=== PATIENT | male | born 1960 | race Caucasian/White ===

== ENCOUNTER → 2016-12-04 | Day surgery (SDC) | payer OTHER ==
[~2016-12-04] MED LIST: ACETAMINOPHEN/HYDROcodone 325 MG/7.5 MG TAB ONE; BUPIVACAINE/EPINEPHRINE 0.25% 50 ML VIAL ONE; IBUP800T23 PO; KETOROLAC TROMETHAMINE 30 MG/ML (IVP) VIAL IV PUSH ONE; LACTATED RINGER'S 1000 ML INJ 1,000 ML ONE; MIDAZOLAM HCL 2 MG/2 ML VIAL ONE; ONDANSETRON HCL 4 MG/2 ML VIAL IV PUSH ONE; PROPOFOL 200 MG/20 ML AMP IV ONE; ROBA750T3 PO; TRAM50 PO; ceFAZolin INJ 1,000 MG VIAL ONE
--- NOTE | 2016-12-04 16:13 | TN ---
cc: MEGHAN LOYD MD DATE OF SURGERY: 12/04/2016. PREOPERATIVE DIAGNOSIS: Right knee torn medial meniscus. POSTOPERATIVE DIAGNOSIS: Right knee torn medial meniscus. OPERATIVE PROCEDURE PERFORMED: Right knee arthroscopy with partial medial meniscectomy. SURGEON: Meghan Loyd MD. DESCRIPTION OF THE PROCEDURE IN DETAIL: Informed consent was obtained. The patient was taken to the operating room and placed in the supine position on the operating table. He was administered a general anesthesia by the anesthesiologist. At that time, he was given a gram of Ancef. The right thigh had a tourniquet. A side post was brought to the operating table. The leg was prepped with Betadine soap followed by Betadine paint and draping commenced with sterile down sheets, sterile towel about the tourniquet, a sterile U-drape. A stockinette was applied over the foot and calf and this was wrapped with a Coban. An extremity drape was applied. The table was elevated to maximum height. The leg was elevated. A time out was held and confirmed. At that time, the leg was allowed to flex over the side of the operating table. An 18 gauge spinal needle was placed in the region of the lateral infrapatellar portal. This region was infiltrated with 4 mL of 0.25% Marcaine with epinephrine. Infiltration was also performed in the medial infrapatellar portal and transpatellar tendon portal regions. A small incision was made with an 11-blade in the region of the transpatellar tendon portal. An inflow cannula was placed. A second incision was placed in the region of the lateral infrapatellar portal. The arthroscopic cannula was placed. The medial compartment was examined. 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 The anterior portion of the medial meniscus appeared intact. As the leg was abducted and external rotated against the side post, posterior medial corner was evaluated and there was a large radial type tear seen. A medial portal was established. This was probed. This was actually a large complex tear with radial and horizontal cleavage components. Next the basket forceps were placed and debridement was performed. This was followed by the meniscal shaver. Once the debridement was complete, some gentle debridement of the articular surface of the medial femoral condyle was performed but this was quite limited. The knee was placed a figure-four position. The scope was maneuvered into the lateral compartment lateral meniscus, lateral femoral condyle, lateral tibial plateau and popliteus tendon all appeared normal. The intercondylar notch was examined and this appeared normal and the anterior cruciate ligament appeared normal. The posteromedial and the posterolateral compartments were examined and these appeared normal. The undersurface of the patella was examined with the knee in extension. I did not see any pathologic problems in the suprapatellar pouch. There were very minimal arthritic changes noted on the undersurface of the patella. At this time, the knee was thoroughly irrigated and suctioned. All cannulas were removed. Each portal was closed with a single 4-0 nylon stitch. Band-Aids, 4x4s, Sof-Rol and Dustin wrap were applied to the patient's knee. The patient tolerated the procedure well and was then taken to the recovery room in stable condition. At the completion of the procedure, the sponge count, instrument count and needle count were correct. The estimated blood was less than 10 cc. The total tourniquet time was twenty-nine (2 MD HO Carlos/SARY /2:20 PM /3:58 PM
== END | disposition home or self-care (01) ==
LOC: ESDC 11:48
PROVIDERS: ATTEND Orthopaedic Surgery
DX: S83.231A Complex tear of medial meniscus, current injury, right knee, initial encounter (principal)
CPT/HCPCS: 01400; 29881; J0690; J1885; J2250; J2405; J3010; J7120